=== PATIENT | female | born 1990 | race Caucasian/White ===

== ENCOUNTER → 2020-01-14 09:15 | Outpatient (BNVA) | payer BC, SELFPAY | PROVIDERS: Family Provider Obstetrics & Gynecology; Visit Provider Nurse Practitioner Family | DX: S37.10XA Unspecified injury of ureter, initial encounter (principal); X58.XXXA Exposure to other specified factors, initial encounter | CPT/HCPCS: 80053 ==

== ENCOUNTER → 2020-01-19 08:53 | Outpatient (BNVA) | payer BC, SELFPAY | PROVIDERS: Family Provider Obstetrics & Gynecology; Visit Provider Nurse Practitioner Family | DX: Z11.59 Encounter for screening for other viral diseases (principal) | CPT/HCPCS: 87635 ==

== ENCOUNTER → 2020-05-02 15:00 | Outpatient (BNVA) | payer BC, SELFPAY | PROVIDERS: Family Provider Obstetrics & Gynecology; Visit Provider Nurse Practitioner Family | DX: E55.9 Vitamin D deficiency, unspecified (principal); R53.83 Other fatigue; Z90.710 Acquired absence of both cervix and uterus; Z92.29 Personal history of other drug therapy; F41.8 Other specified anxiety disorders; Z68.35 Body mass index [BMI] 35.0-35.9, adult | CPT/HCPCS: 82306; 84439; 84443 ==

== ENCOUNTER 2020-05-12 09:06 | Outpatient (CLI) | payer BC, SELFPAY ==
--- NOTE | 2020-05-12 09:30 | MM_ITS ---
WS: [id number] BILATERAL SCREENING DIGITAL MAMMOGRAM WITH CAD HISTORY: Z90.710 - Acquired absence of both cervix and uterus COMPARISON: None available. Bilateral CC and MLO views submitted. Computer aided detection analyzed. Breast composition: The breasts are heterogeneously dense, which may obscure small masses. No suspici ous masses, microcalcifications or architectural distortion. Benign calcification in the LEFT breast. MM/[place] [id number] IMPRESSION: BI-RADS: 2-Benign FOLLOW UP: 1 Year Follow-up
== END 2020-05-12 09:07 | disposition home or self-care (01) ==
LOC: RADSHAW 09:09
PROVIDERS: PCP Nurse Practitioner Family; Visit Provider Nurse Practitioner Family
DX: Z12.31 Encounter for screening mammogram for malignant neoplasm of breast (principal); Z90.710 Acquired absence of both cervix and uterus
CPT/HCPCS: 77067

== ENCOUNTER → 2020-10-16 07:33 | Outpatient (BNVA) | payer BC, SELFPAY | PROVIDERS: PCP Nurse Practitioner Family; Visit Provider Nurse Practitioner Family | DX: T14.8XXA Other injury of unspecified body region, initial encounter (principal); Z83.2 Family history of diseases of the blood and blood-forming organs and certain disorders involving the immune mechanism; Z86.2 Personal history of diseases of the blood and blood-forming organs and certain disorders involving the immune mechanism; X58.XXXA Exposure to other specified factors, initial encounter | CPT/HCPCS: 82728; 83550; 85025; 85240; 85245; 85246 ==

== ENCOUNTER 2020-10-30 10:18 | Outpatient (CLI) | payer BC, SELFPAY ==
--- NOTE | 2020-10-30 20:00 | ONC CON_ITS ---
Dr. Navarro New Patient Note Patient: Tori Jang Unit #: [id number]: 1990 Dicatated By: Soto Navarro M.D.Date of Visit: Oct 30, 2020 Onc MED New Patient/Consult Referring Physician: Curly Camacho Chief Complaint: Suspected von Willebrand's disease. History of Present Illness: This is a 30-year-old woman with suspected von Willebrand's disease. She has a history of endometriosis and also history of nephrolithiasis. She had been having significant menstrual bleeding issues associated with the endometriosis, ultimately culminating in a hysterectomy procedure in December 2019. She also had associated iron deficiency anemia, management of which had been problematic due to very poor tolerance for oral iron supplements. She indicates that in the past she had been evaluated for von Willebrand's disease and those test results were borderline. She had further laboratory testing with Monica Hamilton on 10/16/2020. Those studies included a borderline high aPTT at 32 seconds, a low factor VIII activity of 39%, a low normal Factor VIII antigen at 57%, and a ristocetin cofactor von Willebrand antigen level at the lower limit of normal at 42%. A von Willebrand antigen multimeric analysis showed all multimers of von Willebrand factor to be present and reduced amounts. For CBC at that time showed mild anemia with hemoglobin 11.8 g and hematocrit 37.8%. The red cell indices were hypochromic/microcytic. The white blood cell count was 7200 and the platelet count was 380,000. The serum iron studies showed low transferrin saturation at 14.2% and the ferritin was low at 34 ng/mL, consistent with iron deficiency. She complains that she is very tired all the time, though she still has normal activity. ECOG score is 0. She has not had much appetite since her surgery in December, and her weight is down in the range of 10 to 15 pounds. She has not had fever. She has been having hot flashes for a few years. In addition to the heavy menstrual period, she also has noted that she bruises very easily, not has been significantly worse during the past year or so. With her surgery in December and with her initial abdominal surgery in 2014 she reportedly had abnormally heavy surgical bleeding, but I do not have actual documentation of that, and it was not severe enough to require transfusion. She states she also had abnormal bleeding following the delivery of her second child. She indicates that her mother also had endometriosis and heavy menstrual bleeding. To the patient's knowledge she had not been diagnosed with von Willebrand's disease. There is otherwise no history of abnormal bleeding in the family with the exception that her first child, now 4 years old, has frequent epistaxis. Past Medical History: Her medical history includes anemia, anxiety, endometriosis, and nephrolithiasis. Past Surgical History: She underewent abdominal surgery and D&C twice in 2014 and she underwent hysterectomy with unilateral left oophorectomy, appendectomy, and partial colon resection in 2019. Her other surgeries include arthroscopic right knee surgery in 2008 and 2010 and ureteral stent placement. Medications: One Daily Multivitamin Women 1 Tablet Oral daily, Sertraline HCl 1 Tablet (of 50 mg) Oral daily Allergies: Penicillins Social History: Ms. Jang is . She is a non-smoker. She has just very occasional alcohol use. Family History: Her parents are living and in good health, both at age 50. Father does have hypertension. Her mother also had bleeding issues associated with endometriosis. A 27-year-old brother is in good health. She has 2 daughters, ages 3 and 4. The 4-year-old has frequent epistaxis. Review Of Symptoms: Constitutional - She has been feeling very tired all the time. She still has normal activity. She does not have much appetite. Her weight is down over 10 pounds since her surgery last December. She has not had fever or night sweats. She has been having hot flashes for a few years. ECOG score is 0, Eyes - She has had some decline in visual acuity, ENMT - No hearing loss or tinnitus. She has allergy related sinus symptoms. No mouth sores. No sore throat or difficulty swallowing, Hematologic/Lymphatic - She previously had excessive menstrual bleeding and she has had easy bruising. The bruising has worsened during the past year. She was told that she bled abnormally with her first and her third abdominal surgeries and she also had bleeding following her second delivery, Respiratory - No shortness of breath. She has just occasional cough. No pleuritic pain or hemoptysis, Cardiovascular - No angina pain. No palpitations, Gastrointestinal - She reports having nausea frequently during the past year. She also has acid reflux. She has had mild constipation. No blood in the stool or black stools, Genitourinary (F) - No dysuria or hematuria. Some urinary urgency/incontinence. She has had multiple episodes of nephrolithiasis, Musculoskeletal - She reports having severe joint pain for the past few months, especially in her hips and knees, Integumentary - No skin rash or other skin changes, Neurologic - She has frequent headaches and she has been having episodes of dizziness/lightheadedness. No numbness or tingling. No other focal neurologic symptoms, Psychiatric - She has anxiety. No depression. She has difficulty sleeping. Vital Signs: Performed on Oct 30, 2020 10:56: 8, 3, 31.72 (HIGH), 1.80 sq.m, 62 in, 98 %, 73 /min, 18 /min, 137/80 mm(hg), 97.6 F (LOW), and 173.4 lbs (HIGH). Physical Examination: Constitutional - She appears to be in good general health, Eyes - Sclerae nonicteric. Conjunctivae clear, ENMT - No lesions noted in the oral cavity, Neck - No mass or thyromegaly, Hematologic/Lymphatic - No cervical, clavicular, or axillary adenopathy, Respiratory - Lungs are clear with good air movement bilaterally, Cardiovascular - Heart rhythm is regular. There is no murmur, gallop, or rub noted, Abdomen - Soft and non-tender. Liver and spleen are not enlarged. There is no abdominal mass or ascites noted and there is no inguinal adenopathy, Back/Spine - No spine or CVA tenderness noted, Extremities - No edema.Dorsalis pedis pulses are palpable bilaterally, Integumentary - No rashes. No suspicious skin lesions noted, Neurologic - No focal neurologic deficits noted. Problem List: 1. Mild von Willebrand's disease. 2. Iron deficiency anemia. 3. Endometriosis. 4. History of nephrolithiasis. Problems Addressed with this Encounter and Plan: 1. Patient with abnormal VWF profile in association including borderline low von Willebrand factor antigen and ristocetin cofactor and mildly decreased Factor VIII coagulant activity. In association with a mild bleeding tendency, this does appear to be consistent with mild type I von Willebrand's disease. I reviewed the laboratory findings with the patient and we discussed the clinical implications. As she has not had any severe bleeding, it is unlikely that she will require any treatment. One exception is that we may want to consider prophylaxis with DDAVP prior to planned surgical procedure, but that will require a DDAVP trial to confirm response. At least initially, I will want to plan to repeat her von Willebrand factor studies within the next month or so. Depending on results, I may then proceed with the DDAVP trial. If she has to have further surgery, I can then have a discussion with the surgeon regarding the need for DDAVP prophylaxis. She is otherwise just advised to refrain from use of any nonsteroidal anti-inflammatory agents, which will definitely increase her bleeding risk. 2. She has iron deficiency anemia. At least some compound is likely due to her previous menstrual blood loss. It is uncertain to what extent inadequate oral iron absorption may also be contributing. As she has previously been intolerant of oral iron supplements, she will be given parenteral iron replacement, but that will be subject to verification of insurance coverage. Signed By: Soto Navarro M.D. <<Signature on File>>
== END 2020-10-30 10:19 | disposition home or self-care (01) ==
LOC: ONCMED 10:26
PROVIDERS: PCP Nurse Practitioner Family; Visit Provider Internal Medicine Medical Oncology
DX: D68.0 Von Willebrand disease (principal); D50.9 Iron deficiency anemia, unspecified
CPT/HCPCS: 99205

== ENCOUNTER 2020-11-14 15:00 | Outpatient (CLI) | payer BC, SELFPAY ==
[2020-11-14] MEDS: sodium chloride 0.9% (100 ml) 100 ML 75 ML (15:25)
[2020-11-14] MEDS: ferric carboxy (IVPB) 750 MG in sodium chloride 0.9% (100 ml) 100 ML 345 MG IV (15:25)
== END 2020-11-14 15:01 | disposition home or self-care (01) ==
PROVIDERS: PCP Nurse Practitioner Family; Visit Provider Internal Medicine Medical Oncology
DX: D50.9 Iron deficiency anemia, unspecified (principal)
CPT/HCPCS: 96365; J1439

== ENCOUNTER 2020-11-21 06:42 | Outpatient (CLI) | payer BC, SELFPAY ==
[2020-11-21] MEDS: ferric carboxy (IVPB) 750 MG in sodium chloride 0.9% (100 ml) 100 ML 460 MG IV (15:23)
== END 2020-11-21 06:43 | disposition home or self-care (01) ==
LOC: ONCMED 06:42
PROVIDERS: PCP Nurse Practitioner Family; Visit Provider Internal Medicine Medical Oncology
DX: D50.9 Iron deficiency anemia, unspecified (principal)
CPT/HCPCS: 96365; J1439

== ENCOUNTER 2020-12-19 12:45 | Outpatient (CLI) | payer BC, SELFPAY ==
[2020-12-19 13:42] LABS: Basophils # 0.1 10^3/uL (0.0-0.1); Basophils % 0.5 %; Eosinophils # 0.1 10^3/uL (0.0-0.8); Eosinophils % 0.9 %; Hematocrit 41.1 % (37.0-47.0); Hemoglobin 13.1 g/dL (11.5-15.3); Lymphocytes # 2.1 10^3/uL (0.8-4.8); Lymphocytes % 21.2 %; Mean Corpuscular HGB Conc 31.9 g/dL (30.0-36.0); Mean Corpuscular Hemoglobin 25.7 pg (28.0-34.0); Mean Corpuscular Volume 80.7 fl (81-99); Mean Platelet Volume 9.7 fL (7.4-10.4); Monocytes # 0.5 10^3/uL (0.2-0.9); Monocytes % 4.7 %; Neutrophils # 7.18 10^3/uL (1.8-7.7); Nucleated Red Blood Cells % 0 %; Platelet Count 285 10^3/cmm (130-400); Red Blood Count 5.09 10^6/uL (4.1-5.3); Red Cell Distribution Width 16.9 % (12.1-15.1)
[2020-12-19 14:12] LABS: Alanine Aminotransferase 20 U/L (0-33); Albumin Level 4.3 g/dL (3.5-5.2); Alkaline Phosphatase 82 IU/L (35-105); Anion Gap 14.6 (5-19); Aspartate Amino Transferase 12 U/L (0-32); Blood Urea Nitrogen 11 mg/dL (6-20); Calcium 9.2 mg/dL (8.5-10.5); Carbon Dioxide 27 mmol/L (22-29); Chloride 101 mmol/L (98-107); Ferritin 603 ng/mL (15-150); Globulin 2.9 g/dL (1.3-4.6); Glomerular Filtration Rate 98.3 mL/min (90-130); Glucose 99 mg/dL (65-115); Iron 67 ug/dL (37-145); Osmolality Calculated 287 mOsm/kg (285-295); Percent Saturation 25.6 % (20-50); Potassium 3.6 mmol/L (3.5-5.1); Sodium 139 mmol/L (136-145); Total Bilirubin 0.3 mg/dL (0.15-1.2); Total Iron Binding Capacity 261 mcg/dl; Total Protein 7.2 g/dL (6.6-8.7); Unsaturated Iron Binding 194 ug/dL (112-347)
== END 2020-12-19 12:46 | disposition home or self-care (01) ==
PROVIDERS: PCP Nurse Practitioner Family; Visit Provider Internal Medicine Medical Oncology
DX: D68.0 Von Willebrand disease (principal)
CPT/HCPCS: 36415; 80053; 82728; 83540; 83550; 85025

== ENCOUNTER → 2021-02-26 17:21 | Outpatient (BNVA) | payer BC, SELFPAY | PROVIDERS: PCP Nurse Practitioner Family; Visit Provider Nurse Practitioner Family | DX: D66 Hereditary factor VIII deficiency (principal); R53.83 Other fatigue; E55.9 Vitamin D deficiency, unspecified | CPT/HCPCS: 80053; 82306; 85025 ==

== ENCOUNTER → 2022-05-22 12:54 | Outpatient (BNVA) | payer BC, SELFPAY | PROVIDERS: PCP Nurse Practitioner Family; Visit Provider Nurse Practitioner Family | DX: R21 Rash and other nonspecific skin eruption (principal); R53.83 Other fatigue; E55.9 Vitamin D deficiency, unspecified; E53.8 Deficiency of other specified B group vitamins; Z13.29 Encounter for screening for other suspected endocrine disorder; F41.9 Anxiety disorder, unspecified; Z68.37 Body mass index [BMI] 37.0-37.9, adult | CPT/HCPCS: 80053; 82306; 82607; 84443; 85651; 86140; 86160; 86162; 86200; 86235; 86255; 86376; 86431 ==